=== PATIENT | female | born 2000 | race Caucasian/White ===

== ENCOUNTER 2021-10-17 12:31 | Emergency (ER) | payer OTHER ==
[~2021-10-17] VITALS: Ht 165.1 cm; Wt 74.8 kg
[2021-10-17 12:41] VITALS: BP 112/65
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
[2021-10-17] MEDS ORDERED: IBUPROFEN 600 MG TAB PO ONE (13:00)
[2021-10-17] MEDS ORDERED: DOPPLER MC ONE (13:48)
[2021-10-17] MEDS ORDERED: IBUP-2213 PO (14:19)
[2021-10-17] MEDS ORDERED: CYCL-711 PO (14:19)
--- NOTE | 2021-10-17 14:35 | NUR ---
Patient discharged with v/s stable. Written and verbal after care instructions given and explained. Patient alert, oriented and verbalized understanding of instructions. Ambulatory with steady gait. All questions addressed prior to discharge. ID band removed. Patient advised to follow up with PMD. Rx of FLEXERIL&IBUPROFEN given. Patient educated on indication of medication including possible reaction and side effects. Opportunity to ask questions provided and answered.
[2021-10-17 14:36] VITALS: BP 108/42
== END 2021-10-17 14:35 | disposition home or self-care (01) ==
LOC: MED 12:31
DX: S16.1XXA Strain of muscle, fascia and tendon at neck level, initial encounter (principal); S46.912A Strain of unspecified muscle, fascia and tendon at shoulder and upper arm level, left arm, initial encounter; V89.2XXA Person injured in unspecified motor-vehicle accident, traffic, initial encounter; Y93.89 Activity, other specified; Y92.488 Other paved roadways as the place of occurrence of the external cause; Y99.8 Other external cause status
CPT/HCPCS: 72040; 73030; 81025; 99284

== ENCOUNTER 2022-05-28 11:09 | Emergency (ER) | payer OTHER ==
[~2022-05-28 11:09] MED LIST: CYCL-711 PO; IBUP-2213 PO
--- NOTE | 2022-05-28 11:19 | NUR ---
CALLEDX1. NO SHOW.
--- NOTE | 2022-05-28 11:33 | NUR ---
CALLEDX2. NO SHOW.
--- NOTE | 2022-05-28 11:48 | NUR ---
CALLED [phone]. PT STAED" I WON'T COME TO E."
--- NOTE | 2022-05-28 11:49 | NUR ---
PATIENT LEFT WITHOUT BEING SEEN BY DR. SHIELDS. NO FURTHER CARE PROVIDED FOR PATIENT.
== END 2022-05-28 11:49 | disposition left against medical advice (07) ==
LOC: MED 11:09
DX: R42 Dizziness and giddiness (principal); Z53.21 Procedure and treatment not carried out due to patient leaving prior to being seen by health care provider